=== PATIENT | female | born 1985 | race Two or more races ===

== ENCOUNTER 2017-06-06 15:17 | Outpatient (CLI) | payer OTHER | END 2017-06-06 15:27 | disposition home or self-care (01) | LOC: SONOGRAMA 15:17 | DX: E03.9 Hypothyroidism, unspecified (principal) ==

== ENCOUNTER 2018-01-28 15:30 | Inpatient (IN) | payer OTHER ==
[~2018-01-28] VITALS: Ht 160 cm; Wt 2.7 kg
[2018-02-14] MEDS ORDERED: PRENATAL TABLE1 EAC3 PO (12:54)
[2018-02-14] MEDS ORDERED: SYNTROID PO (12:56)
[2018-02-14] MEDS ORDERED: VALTREX1000 MG PO (12:57)
[2018-02-14] MEDS ORDERED: PNEU16DI2 (12:57)
== END 2018-02-17 13:36 | disposition home or self-care, planned readmission (81) | DRG 788 ==
LOC: LDR 02-14 11:20 → SURG-SUITE 02-14 19:06 → LDR 02-19 15:30
PROVIDERS: Obstetrics & Gynecology
PROC: 4A1HXCZ Monitoring of Products of Conception, Cardiac Rate, External Approach (ICD-10-PCS; 2018-02-14)
PROC: 10D00Z1 Extraction of Products of Conception, Low, Open Approach (ICD-10-PCS; principal; 2018-02-14 13:30)
DX: O64.1XX0 Obstructed labor due to breech presentation, not applicable or unspecified (principal); Z3A.39 39 weeks gestation of pregnancy; Z37.0 Single live birth

== ENCOUNTER 2018-11-06 11:52 | Outpatient (CLI) | payer OTHER ==
[~2018-11-06 11:52] MED LIST: PNEU16DI2; PRENATAL TABLE1 EAC3 PO; SYNTROID PO; VALTREX1000 MG PO
== END 2018-11-06 13:09 | disposition home or self-care (01) ==
LOC: SONOGRAMA 11:52
DX: E03.8 Other specified hypothyroidism (principal)

== ENCOUNTER 2021-12-07 11:53 | Outpatient (CLI) | payer OTHER | END 2021-12-07 12:05 | disposition home or self-care (01) | LOC: RAD 11:53 | DX: M99.01 Segmental and somatic dysfunction of cervical region (principal); M99.02 Segmental and somatic dysfunction of thoracic region; M99.03 Segmental and somatic dysfunction of lumbar region; M99.04 Segmental and somatic dysfunction of sacral region; M99.05 Segmental and somatic dysfunction of pelvic region ==

== ENCOUNTER 2022-09-12 13:54 | Outpatient (CLI) | payer OTHER | END 2022-09-12 14:07 | disposition home or self-care (01) | LOC: MAMO-SONO 13:54 | PROVIDERS: ATTEND Internal Medicine Endocrinology, Diabetes & Metabolism | DX: Z12.31 Encounter for screening mammogram for malignant neoplasm of breast (principal); N64.4 Mastodynia; E04.1 Nontoxic single thyroid nodule ==

== ENCOUNTER 2023-03-07 09:20 | Outpatient (CLI) | payer OTHER | END 2023-03-07 09:42 | disposition home or self-care (01) | LOC: SONOGRAMA 09:20 | PROVIDERS: ATTEND Internal Medicine Endocrinology, Diabetes & Metabolism | DX: N64.4 Mastodynia (principal) ==

== ENCOUNTER 2023-06-27 14:15 | Outpatient (CLI) | payer OTHER | END 2023-06-27 14:17 | disposition home or self-care (01) | LOC: PRENATAL 14:15 | PROVIDERS: ATTEND Obstetrics & Gynecology Maternal & Fetal Medicine | DX: O36.80X0 Pregnancy with inconclusive fetal viability, not applicable or unspecified (principal); O34.219 Maternal care for unspecified type scar from previous cesarean delivery; O09.529 Supervision of elderly multigravida, unspecified trimester; Z3A.11 11 weeks gestation of pregnancy ==

== ENCOUNTER → 2023-11-15 15:09 | Outpatient (CLI) | payer OTHER | END | disposition home or self-care (01) | LOC: PRENATAL 15:09 | PROVIDERS: ATTEND Obstetrics & Gynecology Maternal & Fetal Medicine | DX: O26.843 Uterine size-date discrepancy, third trimester (principal); O36.8130 Decreased fetal movements, third trimester, not applicable or unspecified; O34.219 Maternal care for unspecified type scar from previous cesarean delivery; O09.523 Supervision of elderly multigravida, third trimester; Z3A.32 32 weeks gestation of pregnancy ==

== ENCOUNTER 2025-01-08 06:00 | Day surgery (SDC) | payer OTHER ==
[2025-01-05 09:46] LABS: URINE APPEARANCE Clear; URINE BILIRRUBIN Negative (NEGATIVE); URINE BLOOD Negative; URINE COLOR Yellow; URINE GLUCOSE Negative (NEGATIVE); URINE KETONE Negative (NEGATIVE); URINE LEUKOCYTE Negative; URINE NITRATE Negative; URINE PROTEIN Negative (NEGATIVE); URINE UROBILINOGEN 0.2 E.U./dl
[2025-01-05 09:50] LABS: BASO % 0.6 % (0.1-1.2); EOS # 0.25 (0.04-0.54); EOS % 5.0 % (0.7-7.0); LYMPH # 1.68 (1.18-3.74); LYMPH % 33.4 % (19.3-53.1); MEAN PLATELET VOLUME 10.70 fl (9.4-12.4); MONO # 0.37 (0.24-0.82); MONO % 7.4 % (4.7-12.5); NEUT # 2.69 (1.56-6.13); NEUT % 53.4 % (34.0-71.1); RED CELL DISTRIBUTION WIDTH 13.2 % (11.6-14.4)
[2025-01-05 09:51] LABS: URINE BACTERIA 441.5 uL (0.0-1933); URINE EPITHELIAL CELLS 13.8 uL (0.0-38.8); URINE RBC 9.9 uL (0.0-20.8); URINE WBC 1.8 uL (0.0-23.2)
[2025-01-05 10:14] LABS: INR 1.02
[2025-01-05 10:25] LABS: BUN CREA RATIO 26.0 (7.0-25.0); CREATININE SERUM 0.53 mg/dL (0.55-1.02); GFR 129.8; GLUCOSE FASTING 93.0 mg/dL (65-100); OSMOLALITY SERUM 283.0 MOSM/KG (275-295)
[2025-01-05 10:29] LABS: URINE CAST 0.00 uL (0.0-1.40)
[2025-01-05 11:16] VITALS: BP 118/80
[~2025-01-08] VITALS: Ht 160 cm; Wt 54.4 kg
[2025-01-08] MEDS ORDERED: CLINDAMYCIN PHOSPHATE 150 MG/ML (900mg) ONE (06:56)
[2025-01-08] MEDS ORDERED: GENTAMICIN SULFATE 40 MG/ML VIAL ONE (07:31)
[2025-01-08] MEDS ORDERED: POVIDONE-IODINE SCRUB 118 ML BOTT TOP ONE (07:32)
[2025-01-08] MEDS ORDERED: POVIDONE-IODINE 118 ML BOTT TOP ONE (07:32)
[2025-01-08] MEDS ORDERED: LIDOCAINE HCL 1%/EPINEPHRINE 20ML VIAL IJ ONE (07:33)
[2025-01-08] MEDS ORDERED: BUPIVACAINE HCL/MPF 0.5% 30ML VIAL ONE (07:33)
[2025-01-08] MEDS ORDERED: CEFAZOLIN SODIUM 1,000 MG VIAL ONE (07:33)
[2025-01-08] MEDS ORDERED: TRANEXAMIC ACID 100MG/1ML (1000MG) AMPUL ONE (07:34)
[2025-01-08] MEDS ORDERED: SUGAMMADEX SODIUM 200 MG/2 ML VIAL IV ONE (09:35)
[2025-01-08] MEDS ORDERED: ONDANSETRON HCL 2 MG/ML VIAL IV PRN (10:15)
== END 2025-01-08 15:00 | disposition home or self-care (01) ==
LOC: CIR.AMB 06:00 → O/R 06:00 → CIR.AMB 07:00
PROVIDERS: ATTEND Surgery
DX: K42.0 Umbilical hernia with obstruction, without gangrene (principal); S31.109A Unspecified open wound of abdominal wall, unspecified quadrant without penetration into peritoneal cavity, initial encounter; D23.5 Other benign neoplasm of skin of trunk; N64.82 Hypoplasia of breast; N64.81 Ptosis of breast
CPT/HCPCS: 14301; 49596; 19325; C1781